=== PATIENT | female | born 1945 | race Caucasian/White ===

== ENCOUNTER → 2018-06-14 | Outpatient (CLI) | payer MEDICARE ==
[~2018-06-14] MED LIST: ASPI-1181 PO; BETA1TAB18 PO; FISH1CAP49 PO; FLUT16H NASAL; LOSA50TA64 PO; METO25TA6 PO; MONT10TA24 PO; PRAV40TA3 PO; VITA100C24 PO; VITA80008 PO; [UNRECOGNIZED DRUG - OTHER] PO
== END | disposition home or self-care (01) ==
LOC: SHCH 07:39
PROVIDERS: ATTEND Internal Medicine Cardiovascular Disease
DX: I71.4 Abdominal aortic aneurysm, without rupture (principal)
CPT/HCPCS: 93978

== ENCOUNTER → 2019-09-13 | Outpatient (CLI) | payer MEDICARE ==
[~2019-09-13] MED LIST changes: -MONT10TA24 PO; +MONT10TA26 PO
== END | disposition home or self-care (01) ==
LOC: SHCH 08:02
PROVIDERS: ATTEND Internal Medicine Cardiovascular Disease
DX: I71.4 Abdominal aortic aneurysm, without rupture (principal); I10 Essential (primary) hypertension; R09.89 Other specified symptoms and signs involving the circulatory and respiratory systems
CPT/HCPCS: 93306; 93880; 93978

== ENCOUNTER → 2020-08-23 | Outpatient (CLI) | payer MEDICARE ==
[~2020-08-23] MED LIST changes: -ASPI-1181 PO; +ASPI-1443 PO; +IOHEXOL 350 MG/ML 100ML INFUS..BTL IV ONE; -MONT10TA26 PO; +MONT10TA32 PO; -VITA100C24 PO; +VITA100C26 PO
== END | disposition home or self-care (01) ==
LOC: RAH 07:32
PROVIDERS: ATTEND Internal Medicine Cardiovascular Disease
DX: I71.4 Abdominal aortic aneurysm, without rupture (principal); K57.30 Diverticulosis of large intestine without perforation or abscess without bleeding; I70.0 Atherosclerosis of aorta
CPT/HCPCS: 74174; Q9967

== ENCOUNTER 2021-12-13 09:01 | Emergency (ER) | payer MEDICARE ==
[~2021-12-13] VITALS: Ht 157.5 cm; Wt 85.7 kg
[~2021-12-13 09:01] MED LIST changes: -IOHEXOL 350 MG/ML 100ML INFUS..BTL IV ONE; +MONT-39 PO; -MONT10TA32 PO
[2021-12-13] MEDS ORDERED: 0.9%NACL 1000ML 1,000 ML IV SCH ×2 (10:00→11:30)
[2021-12-13] MEDS ORDERED: ACETAMINOPHEN 500 MG TABLET PO ONE (10:00)
[2021-12-13 10:15] LABS: BASOPHILS % (AUTO) 0.3 % (0.0-5.0); EOSINOPHILS % (AUTO) 0.4 % (0.0-8.0); HEMATOCRIT 42.8 % (36-48); LYMPHOCYTES % (AUTO) 8.7 % (21.0-51.0); MEAN CORPUSCULAR HGB CONC 33.9 g/dL (32.0-36.0); MEAN CORPUSCULAR VOLUME 100.2 fL (79-99); MONOCYTES % (AUTO) 10.7 % (3.0-13.0); PLATELET COUNT (AUTO) 172 K/uL (130-400); RED BLOOD CELL COUNT(AUTO) 4.27 MIL/uL (4.00-5.50); RED CELL DISTRIBUTION WIDTH 13.8 % (11.0-15.5); WHITE BLOOD COUNT (AUTO) 11.8 K/uL (4.8-10.8)
[2021-12-13 10:18] LABS: APPEARANCE,URINE CLEAR (CLEAR); BILIRUBIN,URINE NEGATIVE (NEGATIVE); COLOR,URINE YELLOW (YELLOW); GLUCOSE, URINE (UA) NEGATIVE (NEGATIVE); KETONES,URINE NEGATIVE (NEGATIVE); LEUKOCYTE ESTERASE ,URINE SMALL (NEGATIVE); NITRATE,URINE NEGATIVE (NEGATIVE); OCCULT BLOOD,URINE SMALL (NEGATIVE); PROTEIN,URINE TRACE mg/dL (NEGATIVE); UROBILINOGEN,URINE 0.2 mg/dL (0.2-1.0)
[2021-12-13 10:24] LABS: CREATININE 2.1 mg/dL (0.5-1.5); POTASSIUM 4.3 mmol/L (3.5-5.1)
[2021-12-13 10:29] LABS: ALBUMIN 2.7 g/dL (3.5-5.0); TOTAL PROTEIN, SERUM 7.2 g/dL (6.0-8.3)
[2021-12-13 10:31] LABS: RBC,URINE None Seen /HPF (0-1)
[2021-12-13 10:32] LABS: BACTERIA,URINE Rare /HPF (None Seen); RENAL EPITHELIAL CELLS,URINE Few /HPF (None Seen); SQUAMOUS EPITHELIAL CELL,UR 0-2 /HPF (0-2); TRANSITIONAL EPI CELLS,URINE Few /HPF (None Seen)
[2021-12-13] MEDS ORDERED: CEFTRIAXONE 1G VIAL ONE (11:57)
[2021-12-13] MEDS ORDERED: CEFTRIAXONE 1G VIAL IVP ONE (12:00)
[2021-12-13 13:03] VITALS: BP 122/61
== END 2021-12-13 13:39 | disposition home or self-care (01) ==
LOC: EDH 09:01
DX: N39.0 Urinary tract infection, site not specified (principal); N28.9 Disorder of kidney and ureter, unspecified; Z20.822 Contact with and (suspected) exposure to COVID-19; I10 Essential (primary) hypertension; E86.0 Dehydration; Z88.0 Allergy status to penicillin; Z95.1 Presence of aortocoronary bypass graft; Z79.82 Long term (current) use of aspirin; Z79.899 Other long term (current) drug therapy
CPT/HCPCS: 99285; 84484; 80053; 85025; 87040 ×2; 87804 ×2; 83605; 81001; 36415; 87635; 71045; 96374; 96361; 93005; C9803; J7030; J0696; 96375

== ENCOUNTER → 2022-02-10 | Outpatient (CLI) | payer MEDICARE ==
[2022-02-10 12:39] LABS: CREATININE 1.8 mg/dL (0.5-1.5); POTASSIUM 4.5 mmol/L (3.5-5.1)
== END | disposition home or self-care (01) ==
LOC: LAB 08:06
PROVIDERS: ATTEND Physician Assistant
DX: R06.00 Dyspnea, unspecified (principal)
CPT/HCPCS: 36415; 80048; 83880

== ENCOUNTER → 2022-02-20 | Outpatient (CLI) | payer MEDICARE | END | disposition home or self-care (01) | LOC: SHCH 10:07 | PROVIDERS: ATTEND Internal Medicine Cardiovascular Disease | DX: I35.8 Other nonrheumatic aortic valve disorders (principal); I11.9 Hypertensive heart disease without heart failure; I27.20 Pulmonary hypertension, unspecified; E78.5 Hyperlipidemia, unspecified; Z95.1 Presence of aortocoronary bypass graft | CPT/HCPCS: 93306 ==

== ENCOUNTER → 2022-03-02 | Outpatient (CLI) | payer MEDICARE ==
[~2022-03-02] MED LIST changes: +REGADENOSON 0.4 MG/5 ML PF SYG IVP SCH
== END | disposition home or self-care (01) ==
LOC: SHCH 08:16
PROVIDERS: ATTEND Internal Medicine Cardiovascular Disease
DX: R06.09 Other forms of dyspnea (principal); I10 Essential (primary) hypertension; Z95.1 Presence of aortocoronary bypass graft; Z79.899 Other long term (current) drug therapy
CPT/HCPCS: 78452; 96374; 93017; J2785; A9500 ×2

== ENCOUNTER 2022-04-24 07:45 | Day surgery (SDC) | payer MEDICARE ==
[2022-04-21 09:35] LABS: BASOPHILS % (AUTO) 0.9 % (0.0-5.0); EOSINOPHILS % (AUTO) 5.3 % (0.0-8.0); HEMATOCRIT 46.4 % (36-48); LYMPHOCYTES % (AUTO) 25.2 % (21.0-51.0); MEAN CORPUSCULAR HEMOGLOBIN 33.4 pg (27.0-33.0); MEAN CORPUSCULAR HGB CONC 32.1 g/dL (32.0-36.0); MONOCYTES % (AUTO) 9.2 % (3.0-13.0); NEUTROPHILS % (AUTO) 58.8 % (40.0-77.0); PLATELET COUNT (AUTO) 207 K/uL (130-400); RED BLOOD CELL COUNT(AUTO) 4.46 MIL/uL (4.00-5.50); RED CELL DISTRIBUTION WIDTH 13.9 % (11.0-15.5); WHITE BLOOD COUNT (AUTO) 6.4 K/uL (4.8-10.8)
[2022-04-21 09:48] LABS: CREATININE 1.5 mg/dL (0.5-1.5)
[2022-04-21 09:50] LABS: INR 0.97 (0.85-1.15); PROTHROMBIN TIME 10.6 SEC (9.6-11.6)
[2022-04-21 10:31] LABS: B-TYPE NATRIURETIC PEPTIDE 319 pg/mL (0-100)
[2022-04-21 10:43] LABS: APPEARANCE,URINE CLEAR (CLEAR); BILIRUBIN,URINE NEGATIVE (NEGATIVE); COLOR,URINE LIGHT-YELLOW (YELLOW); GLUCOSE, URINE (UA) NEGATIVE (NEGATIVE); KETONES,URINE NEGATIVE (NEGATIVE); LEUKOCYTE ESTERASE ,URINE NEGATIVE Leu/uL (NEGATIVE); NITRATE,URINE NEGATIVE (NEGATIVE); OCCULT BLOOD,URINE NEGATIVE (NEGATIVE); PROTEIN,URINE NEGATIVE (NEGATIVE); UROBILINOGEN,URINE 0.2 mg/dL (0.2-1.0)
[2022-04-24] VITALS (11 sets, daily range): BP systolic 108–147; BP diastolic 56–65
[~2022-04-24] VITALS: Ht 162.6 cm; Wt 85.7 kg
[~2022-04-24 07:45] MED LIST changes: +ACET-2123 PO; +ASCO1TAB40 PO; +ATOR10 PO; -BETA1TAB18 PO; +CALC-1125 PO; +CINN500C PO; -FISH1CAP49 PO; -FLUT16H NASAL; +KRIL1CAP22 PO; -LOSA50TA64 PO; +MAGN400C PO; -PRAV40TA3 PO; -REGADENOSON 0.4 MG/5 ML PF SYG IVP SCH; +TUMERIC PO; +UBID200C18 PO; +UMEC62.5 IH; +VITA100049 PO; -VITA100C26 PO; +VITAMIN B12 PO; +VITAMIN D3 PO; -[UNRECOGNIZED DRUG - OTHER] PO
[2022-04-24] MEDS ORDERED: 0.9%NACL 1000ML 1,000 ML IV ONE (08:40)
[2022-04-24] MEDS ORDERED: NITROGLYCERIN 50MG VIAL ONE (10:25)
[2022-04-24] MEDS ORDERED: LIDOCAINE HCL 400MG/20ML VIAL ONE (10:25)
[2022-04-24] MEDS ORDERED: IOHEXOL 350 MG/ML 100ML INFUS..BTL IV ONE (10:25)
[2022-04-24] MEDS ORDERED: IOHEXOL-350 50ML VIAL IV ONE (10:25)
[2022-04-24] MEDS ORDERED: HEPARIN 10,000 UNIT/10ML (1,000 UNIT/ML) VIAL ONE (10:26)
[2022-04-24] MEDS ORDERED: MIDAZOLAM HCL 1 MG/ML 2ML VIAL ONE ×2 (10:26→11:06)
[2022-04-24] MEDS ORDERED: MEPERIDINE-PF 25 MG/ML SYG ONE ×2 (10:26→11:06)
[2022-04-24] MEDS ORDERED: ATROPINE 1MG SYG IVP ONE (10:47)
[2022-04-24] MEDS ORDERED: ASPIRIN 81MG CHEW TAB ONE (11:34)
[2022-04-24] MEDS ORDERED: CLOPIDOGREL 300MG TAB ONE (11:35)
[2022-04-24] MEDS ORDERED: 0.9%NACL 1000ML 1,000 ML IV SCH (12:00)
== END 2022-04-24 17:30 | disposition home or self-care (01) ==
LOC: DAH 07:45
PROVIDERS: ATTEND Internal Medicine Cardiovascular Disease
DX: I25.119 Atherosclerotic heart disease of native coronary artery with unspecified angina pectoris (principal); I25.82 Chronic total occlusion of coronary artery; I25.729 Atherosclerosis of autologous artery coronary artery bypass graft(s) with unspecified angina pectoris; I71.40 Abdominal aortic aneurysm, without rupture, unspecified; I49.1 Atrial premature depolarization; G47.33 Obstructive sleep apnea (adult) (pediatric); J44.9 Chronic obstructive pulmonary disease, unspecified; M19.90 Unspecified osteoarthritis, unspecified site; N18.9 Chronic kidney disease, unspecified; Z98.890 Other specified postprocedural states; Z95.1 Presence of aortocoronary bypass graft; Z79.899 Other long term (current) drug therapy; Z79.01 Long term (current) use of anticoagulants; Z79.82 Long term (current) use of aspirin
CPT/HCPCS: 80048; 83880; 85025; 85610; 85730; 81003; 36415 ×2; 71045; 93005; 85347; 93459; C9600; C1769 ×2; C1887 ×3; C1894; C1760; C1874; J3490 ×2; J7030; J0461; J1644 ×2; J2250 ×2; J2175 ×2; Q9967; A4215; A4222; A4221; A4663; A4216; A4606; Q9965 ×2; A4223 ×3; 96360; 96361; 99156; 99157

== ENCOUNTER → 2024-04-20 | Outpatient (CLI) | payer OTHER ==
[~2024-04-20] MED LIST changes: -ASCO1TAB40 PO; -ASPI-1443 PO; -CALC-1125 PO; +CLOP75TA32 PO; +DAPA10TA PO; +FLUT15.845 NS; +FOLI1TAB85 PO; +IOHEXOL-350 50ML VIAL IV ONE; +IOHEXOL-350 75 ML VIAL IV ONE; +LEVO-70 PO; -MAGN400C PO; +PRED20B PO; -VITA100049 PO; -VITA80008 PO; -VITAMIN B12 PO; -VITAMIN D3 PO
--- NOTE | 2024-04-20 10:04 | HMCIMG ---
CT ANGIO ABD/PEL PRE AAA 3MM REASON: AAA COMPARISON: 08/23/2020 TECHNIQUE: Images are obtained from lower chest through the proximal thighs before and during bolus IV contrast infusion, 100 cc Omnipaque 350. 2-D and 3-D reconstruction images were performed. FINDINGS: There is ectasia of the descending thoracic aorta. Measurements at the diaphragmatic hiatus are 3.6 x 3.6 cm, these are unchanged compared to previous exam. There is a small amount of mural thrombus present. Superior mesenteric and celiac artery origins are patent. There is extensive calcification origin of the right renal artery which may reflect stenosis. Left renal artery origin is patent. There is an aortic stent graft in place. [place] aorta appears contracted around the stent graft. There is no evidence of endoleak. The stent graft appears widely patent. Common and external iliac arteries appear unremarkable as do both common femoral arteries. There are no focal liver lesions. Spleen and pancreas appear normal, the gallbladder is absent. Both kidneys appear somewhat small but otherwise unremarkable, there is no mass, stone or hydronephrosis. There is moderate sigmoid diverticulosis without evidence of diverticulitis. Bowel loops appear otherwise normal. There is no free air or fluid and there are no focal fluid collections. There is no retroperitoneal lymphadenopathy. The soft tissues appear normal. Anterior abdominal wall appears intact. There are no focal osseous lesions. IMPRESSION: 1. Diffuse ectasia of the descending thoracic aorta, maximum dimension 3.6 x 3.6 cm, there is a small amount of mural thrombus, these findings are stable compared to prior exam in 2020. 2. Aortic stent graft in place, the graft appears widely patent, there is no evidence of endoleak or interval change. 3. Extensive calcification origin of the right renal artery which may reflect a renal artery stenosis, the left renal artery is patent as are the celiac access and superior mesenteric arteries. 4. No acute nonvascular finding.
== END | disposition home or self-care (01) ==
LOC: RAH 06:48
PROVIDERS: ATTEND Internal Medicine Cardiovascular Disease
DX: I77.810 Thoracic aortic ectasia (principal); I70.1 Atherosclerosis of renal artery
CPT/HCPCS: 74174; Q9967 ×2

== ENCOUNTER → 2024-04-21 | Outpatient (CLI) | payer OTHER ==
[~2024-04-21] MED LIST changes: -IOHEXOL-350 50ML VIAL IV ONE; -IOHEXOL-350 75 ML VIAL IV ONE
--- NOTE | 2024-04-24 12:28 | HMCSR ---
APPROVED REPORT EXAM: Two-dimensional and M-mode echocardiogram with Doppler and color Doppler. Study Details: Hx: CABG, HTN, HLP INDICATION ICD: R06.09 Other forms of dyspnea 2D Dimensions RVDd3.4 cmLVEF(%)61.3 (>50%)LVED Vol(simp.)68.7 mL IVSd0.7 (0.7-1.1cm)FS(%)33 %LVES Vol(simp.)25.9 mL LVDd4.3 (3.8-5.6cm)LA (2D)4.6 (1.6-4.0cm)LVEF(%, simp.)62 % PWd0.9 (0.7-1.1cm)Ao Root(2D)3.3 (2.0-3.7cm)LA ESV INDEX (4CH)31.40 mL/m2 IVSs1.0 cmLVOT diam1.8 (1.8-2.4cm)LA ESV INDEX (2CH)41.10 mL/m2 LVDs2.9 (2.5-4.0cm)LA ESV INDEX (BP)37.80 mL/m2 PWs1.1 cm M-Mode Dimensions EPSS0.6 cm LA (MM)4.6 (1.6-4.0cm) Ao Root(MM)3.6 (2.0-3.7cm) Aortic Valve AoV VTI0.2 mAo Mean GR4.0 mmHgLVOT VTI0.22 m PADMAJA (VMAX)2.6 cm2Al P1/2T518 msAVA (VTI) 2.6 cm2 Mitral Valve MV E Vmax68.4 cm/sDECEL Mrjc376 ms MV A Wbyv786.4 cm/sP 1/2 T58 ms E/A ratio0.7MVA (PHT)3.8 cm2 TDI E/E' Ryvzzl89.9E/E' Lateral9.2 Medial E' Peak V5.30 cm/sLateral E' Peak V7.40 cm/s Pulmonary Valve PV VTI0.31 mPV Mean GR5 mmHg PI End Susan. [place] 126.2 cm/s Tricuspid Valve TR Vmax3.5 m/s TR Peak GR50.2 mmHg Left Ventricle The left ventricle is normal size. There is normal LV segmental wall motion. There is normal left pola tricular wall thickness. LVEF is 60-65%. No left ventricle thrombus noted on this study. Stage I rashid tolic dysfunction. Right Ventricle The right ventricle is normal size. The right ventricular systolic function is normal. Atria The left atrium is mildly dilated. The right atrium is moderately dilated. Aortic Valve The aortic valve is mildly sclerotic, trileaflet and opens well. Trace of aortic regurgitation is pre sent. There is no aortic valvular stenosis. Mitral Valve The mitral valve is normal in structure. There is trace of mitral valve regurgitation noted. There is no mitral valve stenosis. Tricuspid Valve The tricuspid valve is normal in structure. There is moderate tricuspid valve regurgitation noted. Pulmonic Valve The pulmonary valve is normal in structure. There is trace of pulmonic valvular regurgitation. Great Vessels The aortic root is normal in size. The IVC is normal in size and collapses >50% with inspiration. Pericardium There is no pericardial effusion. Other Information Quality : Adequate Conclusion The left ventricle is normal size. There is normal left ventricular wall thickness. LVEF is 60-65%. Stage I diastolic dysfunction. The right ventricle is normal size. The right ventricular systolic function is normal. The left atrium is mildly dilated. The right atrium is moderately dilated. The aortic valve is mildly sclerotic, trileaflet and opens well. Trace of aortic regurgitation is present. The mitral valve is normal in structure. There is trace of mitral valve regurgitation noted. There is no mitral valve stenosis. There is trace of pulmonic valvular regurgitation. The aortic root is normal in size. The IVC is normal in size and collapses >50% with inspiration. There is no pericardial effusion.
== END | disposition home or self-care (01) ==
LOC: RAH 13:57
PROVIDERS: ATTEND Internal Medicine Cardiovascular Disease
DX: I08.2 Rheumatic disorders of both aortic and tricuspid valves (principal); R06.02 Shortness of breath
CPT/HCPCS: 93306